=== PATIENT | female | born 1950 | race Caucasian/White ===

== ENCOUNTER → 2017-04-06 | Outpatient (CLI) | payer MEDICARE, BC ==
[~2017-04-06] MED LIST: CARDI-OMEGA1000 MG PO; CITALOPRAM10 MG PO; LEVOTHYROXIN0.025 MG PO; LORTAB 5/500 501 TAB PO
== END ==
LOC: MC.RAD 13:45
DX: Z12.31 Encounter for screening mammogram for malignant neoplasm of breast (principal)

== ENCOUNTER → 2018-05-29 | Outpatient (CLI) | payer MEDICARE, BC | LOC: MC.RAD 08:10 | DX: Z12.31 Encounter for screening mammogram for malignant neoplasm of breast (principal) ==

== ENCOUNTER → 2019-08-18 | Outpatient (CLI) | payer MEDICARE, BC | LOC: MC.RAD 14:19 | DX: Z12.31 Encounter for screening mammogram for malignant neoplasm of breast (principal) ==

== ENCOUNTER 2020-03-31 21:44 | Observation (INO) | payer MEDICARE, BC ==
[~2020-03-31] VITALS: Ht 160 cm; Wt 80.4 kg
[~2020-03-31 21:44] MED LIST changes: -LEVOTHYROXIN0.025 MG PO; +SYNTHROID 0.0.025 MG PO
[2020-03-31 22:32] LABS: COLLECTION METHOD CLEAN CATCH
[2020-03-31 22:35] LABS: HEMATOCRIT 40.3 % (37.0-47.0); HEMOGLOBIN 14.1 g/dl (12.5-16.0); MEAN CELL VOLUME 91 fl (80.0-100.0); MEAN CORPUSCULAR HEMOGLOBIN 32 pg (27.0-31.0); MEAN CORPUSCULAR HGB CONC 35 g/dl (33.0-37.0); MEAN PLATELET VOLUME 9.7 fl (7.4-10.4); PLATELET COUNT 242 K/mm3 (130-400); RED BLOOD COUNT 4.44 M/mm3 (4.10-5.30); REDCELL DISTRIBUTION WIDTH-CV 12.6 % (11.5-14.5)
[2020-03-31 22:41] LABS: MUCOUS Present /lpf; PH 7 (5-8); SQUAMOUS EPITHELIAL 0-2 /hpf; URINE APPEARANCE Hazy; URINE BACTERIA None Seen /hpf; URINE BILIRUBIN Negative (NEGATIVE); URINE BLOOD Negative (NEGATIVE); URINE COLOR Yellow; URINE GLUCOSE Negative (NEGATIVE); URINE KETONE 1+ (NEGATIVE); URINE LEUKOCYTE ESTERASE Negative (NEGATIVE); URINE NITRATE Negative (NEGATIVE); URINE PROTEIN(semi-quant) Negative (NEGATIVE); URINE UROBILINOGEN Negative (NEGATIVE)
[2020-03-31 22:51] LABS: ALANINE AMINOTRANSFERASE 37 U/L (4-34); ALKALINE PHOSPHATASE 62 U/L (50-136); ANION GAP 11 mmol/L (7-16); AST,SGOT 33 U/L (15-37); BILIRUBIN,TOTAL 0.7 mg/dL (0.0-1.0); BLOOD UREA NITROGEN 18 mg/dL (7-17); CALCIUM 9.9 mg/dL (8.4-10.2); CARBON DIOXIDE 26 mmol/L (22-30); CHLORIDE 103 mmol/L (98-107); CREATININE, serum 1.01 (0.52-1.25); GLUCOSE 157 mg/dL (74-106); LIPASE 80 U/L (23-300); POTASSIUM 3.8 mmol/L (3.4-5.0); SODIUM 139 mmol/L (137-145); TOTAL PROTEIN 8.6 gm/dL (6.4-8.2)
[2020-03-31 22:52] LABS: C-REACTIVE PROTEIN < 0.5 mg/dL (0.0-0.9)
[2020-03-31 23:01] LABS: LYMPHOCYTE 1 % (20.0-51.0); NEUTROPHILS 96 % (42.0-75.2); PLATELET ESTIMATE NORMAL (NORMAL)
[2020-04-01] VITALS (9 sets, daily range): BP systolic 111–153; BP diastolic 55–68; PULSE 54–87; TEMP 98.1–99.3
[2020-04-01] MEDS ORDERED: TYMLOS1.56 ML SQ (03:25)
--- NOTE | 2020-04-01 03:37 | NUR ---
Pt arrived to the floor via stretcher. Pt has no complaints of pain at this time. Pt has her call light within reach.
--- NOTE | 2020-04-01 05:00 | NUR ---
Pt currently sleeping in bed pt has had no complaints of pain at this time. Pt has her call light within reach. Pt has fluids infusing to her right ac.
--- NOTE | 2020-04-01 07:15 | NUR ---
Pt currently resting in bed. Pt has had no complaints of pain. Report was given to RADHA Mueller. Pt has her call light within reach.
--- NOTE | 2020-04-01 08:02 | NUR ---
Dr Hawkins here to see patient.
--- NOTE | 2020-04-01 08:46 | NUR ---
Patient to surgery with surgical staff at this time.
--- NOTE | 2020-04-01 10:45 | NUR ---
Patient returns from surgery at 1030. Assessment unchanged except lap sites x3 to abdomen, edges well approximated, no redness or drainage noted. Spouse at bedside. No c/o at this time.
--- NOTE | 2020-04-01 13:09 | NUR ---
Route Delivery Manager met with patient to discuss discharge planning. Patient's , Darian (ph#[phone]) is at bedside. Patient lives in [place] with her and sees Dr. Flynn for primary care. [facility] with no difficulties and does not use any DME. Patient states she is not sure if she has Advance Directives and SW did not locate anything in EMR. Patient is independent with ADLS and plans to return home at discharge.
--- NOTE | 2020-04-01 15:49 | NUR ---
Discharge instructions reviewed with patient and spouse, verbalized understanding. Discharged via wheelchair to auto/home with spouse at 1550.
== END 2020-04-01 15:50 | disposition home or self-care (01) ==
LOC: COL.ER 21:44 → SURG 04-01 02:05
PROVIDERS: Nurse Practitioner; ADMIT Surgery
DX: K35.80 Unspecified acute appendicitis (principal); E03.9 Hypothyroidism, unspecified; M81.0 Age-related osteoporosis without current pathological fracture; K57.30 Diverticulosis of large intestine without perforation or abscess without bleeding; Z79.899 Other long term (current) drug therapy; Z88.2 Allergy status to sulfonamides; Z88.8 Allergy status to other drugs, medicaments and biological substances
CPT/HCPCS: G0378; J0690; J1100; J2270; J2405; J2543; J2704; J3010; J7030; Q9967

== ENCOUNTER → 2020-09-23 | Outpatient (CLI) | payer MEDICARE, BC ==
[~2020-09-23] MED LIST changes: +TYMLOS1.56 ML SQ
== END ==
LOC: MC.RAD 11:06
DX: Z12.31 Encounter for screening mammogram for malignant neoplasm of breast (principal)

== ENCOUNTER → 2021-09-27 | Outpatient (CLI) | payer MEDICARE, BC | LOC: MC.RAD 07:30 | DX: Z12.31 Encounter for screening mammogram for malignant neoplasm of breast (principal) ==

== ENCOUNTER → 2022-11-09 | Outpatient (CLI) | payer MEDICARE, BC | LOC: MC.RAD 10:39 | DX: Z12.31 Encounter for screening mammogram for malignant neoplasm of breast (principal) ==